=== PATIENT | male | born 1990 | race Hispanic/Latino ===

== ENCOUNTER 2018-08-31 15:02 | Inpatient (IN) | payer SELFPAY ==
[~2018-08-31] VITALS: Ht 170.2 cm; Wt 198.2 kg
[2018-08-31] MEDS: ALBUTEROL SULF 0.083% NEB SOLN 3 ML NEB NEB SCH (00:22)
[~2018-08-31 15:02] MED LIST: CIPRO500 MG PO; LOSARTAN POTAS100 MG PO; LOVASTATIN20 MG PO; OMEPRAZOLE40 MG PO
[2018-08-31] MEDS ORDERED: CEFTRIAXONE SOD 1 GM/NS 50 ML 50 ML IV STA (15:19)
[2018-08-31] MEDS ORDERED: IPRATROPIUM BROMIDE 0.02% 2.5 ML NEB NEB STA (15:19)
[2018-08-31] MEDS ORDERED: SODIUM CHLORIDE 0.9% 1000ML 1,000 ML IV STA (15:19)
[2018-08-31] MEDS ORDERED: ALBUTEROL SULF 0.083% NEB SOLN 3 ML NEB NEB STA (15:19)
[2018-08-31 16:18] LABS: BILIRUBIN,URINE NEGATIVE (NEGATIVE); CLARITY,URINE SL CLOUDY (CLEAR); COLOR,URINE YELLOW (YELLOW); KETONES,URINE TRACE (NEGATIVE); LEUKOCYTE ESTERASE ,URINE NEGATIVE (NEGATIVE); NITRITE,URINE NEGATIVE (NEGATIVE); PROTEIN,URINE DIPSTICK 2+ (NEGATIVE); URINE UROBILINOGEN 0.2 mg/dL (0.2 - 1)
[2018-08-31 16:30] LABS: BACTERIA,URINE MODERATE /HPF; EPITHELIAL CELLS,URINE FEW /LPF
[2018-08-31 16:31] LABS: MUCUS,URINE FEW (RARE)
--- NOTE | 2018-08-31 17:02 | Diagnostic Imaging Report ---
EXAMINATION: CHEST 2 VIEWS INDICATION: Cough, congestion, sore throat. COMPARISON: Report from CT chest dated 09/04/2016, although the images are not available for review. FINDINGS: TUBES and LINES: None. LUNGS: Lungs are moderately inflated. There is bilateral bronchial thickening. There are interstitial opacities in the right lung. There are patchy opacities in the right mid and bilateral lower lungs. PLEURA: No pleural effusion or pneumothorax. HEART AND MEDIASTINUM: The cardiomediastinal silhouette is unremarkable. BONES AND SOFT TISSUES: No acute osseous abnormality. UPPER ABDOMEN: No free air under the diaphragm. IMPRESSION: Multifocal opacities, most consistent with pneumonia in a patient with cough. Recommend follow-up chest radiograph in 6-8 weeks to assess for resolution. Signed by: Dr. Lazara Roach MD on 08/31/2018 4:59 PM
[2018-08-31] MEDS ORDERED: ALBUTEROL SULF 0.083% NEB SOLN 3 ML NEB ONE ×2 (19:08→19:42)
[2018-08-31] MEDS ORDERED: IPRATROPIUM BROMIDE 0.02% 2.5 ML NEB ONE ×2 (19:09→19:42)
[2018-08-31 19:49] LABS: BASOPHILS % 0.4 % (0.0-1.0); EOSINOPHILS # (AUTO) 0.1 (0.0-0.4); EOSINOPHILS % 2.4 % (0.0-6.0); HEMATOCRIT 44.8 % (38.2-49.6); HEMOGLOBIN 13.9 g/dL (14.0-18.0); LYMPHOCYTES # (AUTO) 1.5 (1.0-3.2); LYMPHOCYTES % 27.5 % (18.0-39.1); MEAN CORPUSCULAR VOLUME 80.4 fL (81-99); MONOCYTES # (AUTO) 0.5 (0.2-0.8); MONOCYTES % 8.9 % (4.4-11.3); NEUTROPHILS # (AUTO) 3.2 (2.1-6.9); NEUTROPHILS % 58.6 % (38.7-80.0); PLATELET COUNT 150 x10e3/uL (140-360); RED BLOOD COUNT 5.57 x10e6/uL (4.3-5.7); RED CELL DISTRIBUTION WIDTH 14.8 % (11.7-14.4)
[2018-08-31] MEDS: LEVOFLOXACIN 750MG/D5W 150ML 150 ML IV SCH (20:00)
[2018-08-31 20:35] LABS: INFLUENZAE A&B ANTIGEN (RAPID) NEGATIVE (NEGATIVE); STREPTOCOCCUS GRP A ANTIGEN NEGATIVE (NEGATIVE)
[2018-08-31 20:45] LABS: INR 0.9; PROTHROMBIN TIME 12.6 seconds (11.9-14.5)
[2018-08-31 20:46] LABS: PARTIAL THROMBOPLASTIN TIME 27.9 seconds (23.8-35.5)
[2018-08-31 20:48] LABS: B-TYPE NATRIURETIC PEPTIDE2 < 10.0 pg/mL (0-100)
[2018-08-31 20:55] LABS: ALANINE AMINOTRANSFERASE 15 IU/L (0-55); ALBUMIN 3.1 g/dL (3.5-5.0); ALBUMIN/GLOBULIN RATIO 0.7 (0.8-2.0); ALKALINE PHOSPHATASE 116 IU/L (40-150); ANION GAP 13.9 mmol/L (8-16); BLOOD UREA NITROGEN 15 mg/dL (7-26); BUN/CREATININE RATIO 21 (6-25); CALCIUM 9.3 mg/dL (8.4-10.2); CARBON DIOXIDE 28 mmol/L (22-29); CHLORIDE 96 mmol/L (98-107); CREATINE KINASE 74 IU/L (30-200); CREATININE, SERUM 0.73 mg/dL (0.72-1.25); EST GLOMERULAR FILTRATION RATE > 60 ML/MIN (60-); GLUCOSE 281 mg/dL (74-118); POTASSIUM 3.9 mmol/L (3.5-5.1); SODIUM 134 mmol/L (136-145)
[2018-08-31 21:15] LABS: THYROID STIMULATING HORMONE 1.588 uIU/mL (0.350-4.940)
[2018-08-31] MEDS ORDERED: SODIUM CHLORIDE FLUSH 10 ML SYR INJ PRN (21:15)
[2018-08-31] MEDS ORDERED: ACETAMINOPHEN 325 MG TAB PO PRN (21:15)
--- OUTSIDE RECORDS SUMMARY | 2018-08-31 21:59 | XMS REPORT ---
Author Author [facility] Address Unknown Phone Unavailable Care Team Providers Care Assistant Basketball Coach Name Role Phone Andres PEREZ Unavailable Unavailable Problems This patient has no known problems. Allergies, Adverse Reactions, Alerts This patient has no known allergies or adverse reactions. Medications This patient has no known medications. Results Test Description Test Time Test Comments Text Results Atomic Results Result Comments CHEST 2 VIEWS 2018-08-31 16:56:00 [facility] [address] [address] Patient Name: SRAVAN HDZ MR #: [id number] : 1990 Age/Sex: 28/M Req #: [id number] Adm Physician: Ordered by: ESTUARDO WHITE CHAPLAIN RESIDENT Report #: [id number] Location: ER Room/Bed: Procedure: [id number] DX/CHEST 2 VIEWS Exam Date: 08/31/18 Exam Time: 1547 REPORT STATUS: Signed EXAMINATION: CHEST 2 VIEWS INDICATION: Cough, con gestion, sore throat. COMPARISON: Report from CT chest dated 09/04/2016, although the images are not available for review. FINDINGS: TUBES and LINES: None. LUNGS: Lungs are moderately inflated. There is bilateral bronchial thickening. There are interstitial opacities in the right lung. There are patchy opacities in the right mid and bilateral lower lungs. PLEURA: No pleural effusion or pneumothorax. HEART AND MEDIASTINUM: The cardiomediastinal silhouette is unremarkable. BONES AND SOFT TISSUES: No acute osseous abnormality. UPPER ABDOMEN: No free air under the diaphragm. IMPRESSION: Multifocal opacities, most consistent with pneumonia in a patient with cough. Recommend follow-up chest radiograph in 6-8 weeks to assess for resolution. Signed by: Dr. Kwabena Roach MD on 08/31/2018 4:59 PM Dictated By: KWABENA ROACH MD [id number] Transcribed By: CHARLIE on 08/31/18 4432 COPY TO: ESTUARDO WHITE NP
[2018-08-31 22:09] VITALS: BP 128/64
[2018-08-31 22:12] LABS: BAND NEUTROPHILS % (MANUAL) 2 %; EOSINOPHILS % (MANUAL) 1 % (0-7); LYMPHOCYTES % (MANUAL) 25 % (19-48); MONOCYTES % (MANUAL) 8 % (3.4-9.0); NEUTROPHILS % (MANUAL) 62 % (40-74); PROMYELOCYTES % (MANUAL) 2 % (0-0)
[2018-08-31 22:15] VITALS: BP 128/64
[2018-08-31 23:02] LABS: HIV 1&2 AB SCREEN NON-REACTIVE (NONREACTIVE)
[2018-09-01] MEDS: IPRATROPIUM BROMIDE 0.02% 2.5 ML NEB NEB SCH ×4 (00:22→20:11)
[2018-09-01] MEDS: ALBUTEROL SULF 0.083% NEB SOLN 3 ML NEB NEB SCH ×5 (03:44→20:11)
[2018-09-01 04:00] VITALS: BP 134/84
[2018-09-01 06:26] LABS: BASOPHILS % 0.6 % (0.0-1.0); EOSINOPHILS # (AUTO) 0.1 (0.0-0.4); EOSINOPHILS % 1.5 % (0.0-6.0); HEMOGLOBIN 13.9 g/dL (14.0-18.0); LYMPHOCYTES # (AUTO) 1.2 (1.0-3.2); LYMPHOCYTES % 17.2 % (18.0-39.1); MEAN CORPUSCULAR HEMOGLOBIN 24.6 pg (28-32); MEAN CORPUSCULAR HGB CONC 29.6 g/dL (31-35); MEAN CORPUSCULAR VOLUME 83.2 fL (81-99); MONOCYTES # (AUTO) 0.6 (0.2-0.8); MONOCYTES % 8.3 % (4.4-11.3); NEUTROPHILS # (AUTO) 4.8 (2.1-6.9); NEUTROPHILS % 70.6 % (38.7-80.0); PLATELET COUNT 160 x10e3/uL (140-360); RED BLOOD COUNT 5.65 x10e6/uL (4.3-5.7); RED CELL DISTRIBUTION WIDTH 15.1 % (11.7-14.4)
[2018-09-01 06:30] LABS: ALANINE AMINOTRANSFERASE 17 IU/L (0-55); ALBUMIN 3.1 g/dL (3.5-5.0); ALBUMIN/GLOBULIN RATIO 0.7 (0.8-2.0); ALKALINE PHOSPHATASE 99 IU/L (40-150); ANION GAP 12.2 mmol/L (8-16); BLOOD UREA NITROGEN 15 mg/dL (7-26); BUN/CREATININE RATIO 20 (6-25); CALCIUM 8.9 mg/dL (8.4-10.2); CARBON DIOXIDE 29 mmol/L (22-29); CHLORIDE 98 mmol/L (98-107); CREATININE, SERUM 0.74 mg/dL (0.72-1.25); EST GLOMERULAR FILTRATION RATE > 60 ML/MIN (60-); GLUCOSE 341 mg/dL (74-118); POTASSIUM 4.2 mmol/L (3.5-5.1); SODIUM 135 mmol/L (136-145)
[2018-09-01 06:47] LABS: CREATINE KINASE 113 IU/L (30-200)
[2018-09-01 07:46] VITALS: BP 133/78
[2018-09-01 08:00] VITALS: BP 133/78
[2018-09-01] MEDS ORDERED: DEXTROSE 50% SYRINGE 50 ML IV PRN (10:15)
[2018-09-01] MEDS ORDERED: ACETAMINOPHEN 325 MG TAB PO PRN (10:30)
[2018-09-01] MEDS ORDERED: MAGNESIUM HYDROXIDE 30 ML UDC PO PRN (10:30)
[2018-09-01] MEDS: INSULIN REGULAR, HUMAN 100 UNIT/1 ML 3ML VIAL SQ SCH ×3 (11:30→21:00)
[2018-09-01 11:34] VITALS: BP 133/91
[2018-09-01 14:32] LABS: CREATINE KINASE 135 IU/L (30-200)
[2018-09-01 16:20] VITALS: BP 144/71
--- NOTE | 2018-09-01 17:33 | History and Physical ---
HISTORY OF PRESENT ILLNESS: Mr. 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 CHIEF COMPLAINT: The patient reports that he sees Dr. Henry once or twice a year and reports that he "thought he had a cold." He could get not in Dr. Henry's office because it was "too busy," so he went to see Dr. Villegas, who directed him directly to the emergency room for presumed pneumonia. PAST MEDICAL HISTORY: Significant for previous hospitalization for pneumonia and pleural effusion in August of 2016 when he weighed only 395 pounds. He has had a previous left ankle fracture in 2008. MEDICATIONS: He reports that his home medications are: 1. Omeprazole 20 mg daily. 2. Losartan 50 mg daily. 3. Simvastatin 10 mg daily. REVIEW OF SYSTEMS: PULMONARY: The patient reports that he is using CPAP for sleep now. He does not use oxygen around the clock. ENDOCRINE: His previous blood sugars were 108 to 141 back in 2017. GENERAL: He appears to have gained approximately 42 pounds of weight over the last two years, now weighing 437 pounds by bed scale. PHYSICAL EXAMINATION: GENERAL: At this time shows morbidly obese white man, who is alert, conversant, about 5 feet 7 inches tall. HEAD, EYES, EARS, NOSE, AND THROAT: Unremarkable. THORAX: Heart sounds S1, S2 are equal. No murmurs. LUNGS: Faint rhonchi and mild wheezing in the left upper lobe. ABDOMEN: Markedly protuberant. EXTREMITIES: Large, but without any significant edema. PERTINENT LABORATORY STUDIES: Sodium 135, potassium 4.2, glucose 341. Hemoglobin 13.9. INR 0.9. White count 6.8. IMAGING: Chest x-ray shows multifocal infiltrates. ASSESSMENT: 1. Pneumonia. 2. Morbid obesity with further weight gain in the last two years from 395 pounds to 437 pounds. 3. Sleep apnea. He reports he is using CPAP now. 4. New diagnosis of diabetes and blood sugar much higher than it was two years ago. PLAN: The patient is receiving broad-spectrum antibiotics and we will ask for Pulmonary consultation. We will try sliding scale insulin for him and monitor his blood sugars as for dietitian input. MD VIJAY Diallo/JOSTIN /[id number] cc: MD Kyler Garcia MD
[2018-09-01] MEDS: FLUTICASONE PROPIONATE NASAL SPRAY NS SCH (17:39)
[2018-09-01] MEDS: ENOXAPARIN SOD INJ 40 MG/0.4 ML SYR SC SCH (17:40)
[2018-09-01] MEDS: DOCUSATE SODIUM 100 MG CAP PO SCH (17:40)
[2018-09-01] MEDS ORDERED: SODIUM CHLORIDE 0.9% 250ML 250 ML ONE (17:45)
[2018-09-01] MEDS: LEVOFLOXACIN 750MG/D5W 150ML 150 ML IV SCH (17:55)
[2018-09-01 20:00] VITALS: BP 139/94
[2018-09-01] MEDS: OXYMETAZOLINE HCL 0.05% NAS 1 SPRAY BTL SCH (21:00)
[2018-09-01] MEDS: SIMVASTATIN 20 MG TAB PO SCH (21:00)
[2018-09-01] MEDS ORDERED: NON-FORMULARY MEDICATION (Lovastatin 20 MG) PO SCH (21:00)
--- NOTE | 2018-09-01 23:23 | Consultation ---
DATE OF CONSULTATION: Pulmonary Consultation HISTORY OF PRESENT ILLNESS: The patient of Dr. Maycol Gamble and Dr. Lucho Henry, [facility] 28-year-[facility] gentleman, admitted with sore throat, chills, productive cough, ill for approximately seven days. Denies vomiting. History of gastroesophageal reflux, hypertension, hyperlipidemia, newly diagnosed with diabetes mellitus. ALLERGIES: NO KNOWN ALLERGIES. MEDICATIONS: Include losartan, omeprazole, and lovastatin. SURGICAL HISTORY: No surgical history. He has had fractured ankle repair. SOCIAL HISTORY: Works as a catering truck driver. Nonsmoker. No alcohol. FAMILY HISTORY: Noncontributory. PHYSICAL EXAMINATION: GENERAL: Morbidly obese white male, in no acute distress, surrounded by his family. VITAL SIGNS: Temperature 96, pulse 110, blood pressure 144/71. HEAD: Normocephalic, atraumatic. NECK: Trachea midline. LUNGS: Diminished breath sounds bilaterally. Few rhonchi. HEART: Regular rhythm. ABDOMEN: Obese. EXTREMITIES: Trace edema. IMPRESSION: Diabetes, obstructive sleep apnea, hypertension, community-acquired pneumonia. PLAN: IV antibiotic therapy. Currently on Levaquin, check sputum studies. No evidence of heart failure, resume BiPAP. Diabetic teaching. Consider HIV screen. Weight reduction and dietary intervention. Thank you for this kind referral. MD SAROJ Li/MODL /[id number]
[2018-09-02] VITALS (8 sets, daily range): BP systolic 128–145; BP diastolic 70–82
[2018-09-02] MEDS: IPRATROPIUM BROMIDE 0.02% 2.5 ML NEB NEB SCH ×4 (00:19→19:32)
[2018-09-02] MEDS: ALBUTEROL SULF 0.083% NEB SOLN 3 ML NEB NEB SCH ×4 (00:19→19:32)
[2018-09-02 06:43] LABS: BASOPHILS % 0.4 % (0.0-1.0); EOSINOPHILS # (AUTO) 0.1 (0.0-0.4); EOSINOPHILS % 1.9 % (0.0-6.0); HEMATOCRIT 45.5 % (38.2-49.6); HEMOGLOBIN 13.8 g/dL (14.0-18.0); LYMPHOCYTES # (AUTO) 1.2 (1.0-3.2); LYMPHOCYTES % 17.1 % (18.0-39.1); MEAN CORPUSCULAR HGB CONC 30.3 g/dL (31-35); MEAN CORPUSCULAR VOLUME 82.6 fL (81-99); MONOCYTES # (AUTO) 0.5 (0.2-0.8); MONOCYTES % 7.1 % (4.4-11.3); NEUTROPHILS % 71.6 % (38.7-80.0); PLATELET COUNT 157 x10e3/uL (140-360); RED BLOOD COUNT 5.51 x10e6/uL (4.3-5.7); RED CELL DISTRIBUTION WIDTH 15.1 % (11.7-14.4)
[2018-09-02 07:17] LABS: ALANINE AMINOTRANSFERASE 19 IU/L (0-55); ALBUMIN 3.1 g/dL (3.5-5.0); ALBUMIN/GLOBULIN RATIO 0.7 (0.8-2.0); ALKALINE PHOSPHATASE 96 IU/L (40-150); ANION GAP 12.1 mmol/L (8-16); BLOOD UREA NITROGEN 13 mg/dL (7-26); BUN/CREATININE RATIO 18 (6-25); CALCIUM 8.8 mg/dL (8.4-10.2); CARBON DIOXIDE 30 mmol/L (22-29); CHLORIDE 98 mmol/L (98-107); CREATININE, SERUM 0.73 mg/dL (0.72-1.25); EST GLOMERULAR FILTRATION RATE > 60 ML/MIN (60-); GLUCOSE 270 mg/dL (74-118); POTASSIUM 4.1 mmol/L (3.5-5.1); SODIUM 136 mmol/L (136-145)
[2018-09-02] MEDS: INSULIN REGULAR, HUMAN 100 UNIT/1 ML 3ML VIAL SQ SCH ×4 (07:30→21:08)
[2018-09-02 07:38] LABS: CHOL/HDL RATIO 5.3 (3.9-4.7); CHOLESTEROL 132 MD/DL (0-199); HDL CHOLESTEROL 25 MG/DL (40-60); LDL CHOLESTEROL 83 MG/DL (60-130); TRIGLYCERIDES 121 MG/DL (0-149)
[2018-09-02] MEDS: DOCUSATE SODIUM 100 MG CAP PO SCH ×2 (08:38→17:00)
[2018-09-02] MEDS: FLUTICASONE PROPIONATE NASAL SPRAY NS SCH ×2 (08:38→17:46)
[2018-09-02] MEDS: OXYMETAZOLINE HCL 0.05% NAS 1 SPRAY BTL SCH ×2 (08:38→21:07)
[2018-09-02] MEDS: LOSARTAN POTASSIUM 100 MG TAB PO SCH (08:39)
[2018-09-02] MEDS: PANTOPRAZOLE SOD 40 MG TABEC PO SCH (08:40)
[2018-09-02] MEDS ORDERED: PANTOPRAZOLE SOD 40 MG TABEC PO SCH (09:00)
[2018-09-02] MEDS: NPH, HUMAN INSULIN ISOPHANE 100 UNIT/1 ML 3ML VIAL SQ SCH ×2 (09:05→17:00)
[2018-09-02] MEDS: LORATADINE 10 MG TAB PO SCH (17:46)
[2018-09-02] MEDS: LEVOFLOXACIN 750MG/D5W 150ML 150 ML IV SCH (17:50)
[2018-09-02] MEDS: ENOXAPARIN SOD INJ 40 MG/0.4 ML SYR SC SCH (17:50)
[2018-09-02] MEDS: METFORMIN HCL 500 MG TAB PO SCH (17:50)
[2018-09-02] MEDS: SIMVASTATIN 20 MG TAB PO SCH (21:07)
[2018-09-03] VITALS (8 sets, daily range): BP systolic 132–158; BP diastolic 62–82
[2018-09-03] MEDS: ALBUTEROL SULF 0.083% NEB SOLN 3 ML NEB NEB SCH ×4 (00:55→18:45)
[2018-09-03] MEDS: IPRATROPIUM BROMIDE 0.02% 2.5 ML NEB NEB SCH ×4 (00:55→18:45)
[2018-09-03] MEDS: LORATADINE 10 MG TAB PO SCH (08:50)
[2018-09-03] MEDS: METFORMIN HCL 500 MG TAB PO SCH ×2 (08:50→17:01)
[2018-09-03] MEDS: OXYMETAZOLINE HCL 0.05% NAS 1 SPRAY BTL SCH ×2 (08:50→20:01)
[2018-09-03] MEDS: FLUTICASONE PROPIONATE NASAL SPRAY NS SCH ×2 (08:50→17:00)
[2018-09-03] MEDS: LOSARTAN POTASSIUM 100 MG TAB PO SCH (08:51)
[2018-09-03] MEDS: PANTOPRAZOLE SOD 40 MG TABEC PO SCH (08:51)
[2018-09-03] MEDS: DOCUSATE SODIUM 100 MG CAP PO SCH ×2 (08:53→17:00)
[2018-09-03] MEDS: NPH, HUMAN INSULIN ISOPHANE 100 UNIT/1 ML 3ML VIAL SQ SCH ×2 (11:06→17:56)
[2018-09-03] MEDS: INSULIN REGULAR, HUMAN 100 UNIT/1 ML 3ML VIAL SQ SCH ×4 (11:06→20:32)
[2018-09-03] MEDS: ENOXAPARIN SOD INJ 40 MG/0.4 ML SYR SC SCH (17:01)
[2018-09-03] MEDS: LEVOFLOXACIN 750MG/D5W 150ML 150 ML IV SCH (18:09)
[2018-09-03] MEDS: SIMVASTATIN 20 MG TAB PO SCH (20:01)
[2018-09-04] VITALS: BP 122/91
[2018-09-04] MEDS: IPRATROPIUM BROMIDE 0.02% 2.5 ML NEB NEB SCH ×2 (00:24→07:25)
[2018-09-04] MEDS: ALBUTEROL SULF 0.083% NEB SOLN 3 ML NEB NEB SCH ×2 (00:24→07:25)
[2018-09-04 04:00] VITALS: BP 137/71
[2018-09-04 07:30] VITALS: BP 135/65
[2018-09-04 07:44] VITALS: BP 135/65
[2018-09-04] MEDS: METFORMIN HCL 500 MG TAB PO SCH (08:05)
[2018-09-04] MEDS: LORATADINE 10 MG TAB PO SCH (08:06)
[2018-09-04] MEDS: DOCUSATE SODIUM 100 MG CAP PO SCH (08:10)
[2018-09-04] MEDS: LOSARTAN POTASSIUM 100 MG TAB PO SCH (08:11)
[2018-09-04] MEDS: PANTOPRAZOLE SOD 40 MG TABEC PO SCH (08:11)
[2018-09-04] MEDS: INSULIN REGULAR, HUMAN 100 UNIT/1 ML 3ML VIAL SQ SCH ×2 (08:35→11:30)
[2018-09-04] MEDS: NPH, HUMAN INSULIN ISOPHANE 100 UNIT/1 ML 3ML VIAL SQ SCH (08:45)
[2018-09-04] MEDS: FLUTICASONE PROPIONATE NASAL SPRAY NS SCH (09:41)
[2018-09-04] MEDS: OXYMETAZOLINE HCL 0.05% NAS 1 SPRAY BTL SCH (09:41)
[2018-09-04 11:57] VITALS: BP 116/63
[2018-09-04] MEDS ORDERED: METFORMIN HCL500 MG PO (12:22)
[2018-09-04] MEDS ORDERED: LEVAQUIN500 MG PO (12:22)
--- NOTE | 2018-09-04 18:29 | Discharge Summary ---
Mr. Leung is a 28-year-old man, who is super obese (300% of ideal weight), who presented to the emergency room with a complaint of cough and shortness of breath. HOSPITAL COURSE: Initial evaluation suggested possible pneumonia and he was given broad-spectrum antibiotics with IV Levaquin. He was found also to have galina diabetes with a hemoglobin A1c over 10. He was given sliding scale insulin and had metformin added as well. We have discussed sinus congestion and the use of a CPAP machine for sleep apnea. He is educated that both Claritin and Nasacort and Flonase are also [id number]. Today, he is feeling better and discharged home to take Levaquin 500 mg daily for another seven days and add metformin 500 mg twice a day to his medical regimen. He will follow up with Dr. Henry or the [facility] for management of galina diabetes. DISCHARGE DIAGNOSES: 1. Pneumonia. 2. Super obesity. 3. Type 2 adult onset diabetes, uncontrolled. 4. Sleep apnea. 5. Nasal congestion. MD VIAJY Diallo/MODL /[id number] cc: MD Lucho Jimenez MD
== END 2018-09-04 13:46 | disposition home or self-care (01) | DRG 194 ==
LOC: ER 15:02 → ERHOLD 21:57 → MED/SURG3 22:14
PROVIDERS: ADMIT Internal Medicine Cardiovascular Disease; ATTEND Internal Medicine Cardiovascular Disease
DX: J18.9 Pneumonia, unspecified organism (principal); Z68.44 Body mass index [BMI] 60.0-69.9, adult; E66.01 Morbid (severe) obesity due to excess calories; G47.33 Obstructive sleep apnea (adult) (pediatric); E11.65 Type 2 diabetes mellitus with hyperglycemia; I10 Essential (primary) hypertension; K21.9 Gastro-esophageal reflux disease without esophagitis; E78.5 Hyperlipidemia, unspecified; R09.81 Nasal congestion; Z79.84 Long term (current) use of oral hypoglycemic drugs
CPT/HCPCS: 36415; 71046; 80053; 80061; 81001; 82550; 82553; 82948; 83036; 83518; 83605; 83880; 84443; 84484; 85025; 85610; 85730; 87040; 87070; 87086; 87390; 87400; 94640; 94660; 99284; G0433; G0435; J1650; J7050

== ENCOUNTER 2019-11-10 15:29 | Emergency (ER) | payer SELFPAY ==
[~2019-11-10] VITALS: Ht 170.2 cm; Wt 198.2 kg
[~2019-11-10 15:29] MED LIST changes: +LEVAQUIN500 MG PO; +METFORMIN HCL500 MG PO
--- NOTE | 2019-11-10 15:43 | Emergency Department Note ---
History of Present Illnes History of Present Illness Chief Complaint: COVID PUI History of Present Illness This is a 29 year old male arrives to the ED with complaints of cough fever and shortness of breath, states his mother tested positive for Covid and his Covid test is pending. . Historian: Patient Arrival Mode: Car Onset (how long ago): day(s) Severity: mild Onset quality: gradual Duration (how long): day(s) Timing of current episode: intermittent Progression: improving Chronicity: new Context: Reports recent illness Relieving factors: none Past Medical/Family History Physician Review I have reviewed the patient's past medical and family history. Any updates have been documented here. Past Medical History Recent Fever: Yes Clinical Suspicion of Infectio: Yes New/Unexplained Change in Ment: No Past Medical History: Hypertension, Diabetes, GERD, Hyperlipedemia Other Medical History: Obesity, Pneumonia (2 yrs ago) Past Surgical History: Appendectomy Other Surgery: left ankle surgery, left tibia surgery Social History Smoking Cessation: Never Smoker Counseling Performed: No Alcohol Use: Social Any Illegal Drug Use: No TB Exposure/Symptoms: No Physically hurt or threatened: No Family History Family history of heart diseas: Yes Other [facility] Review of Systems Review of Systems Constitutional: Reports no symptoms, Reports as per HPI, Reports weakness EENTM: Reports no symptoms Cardiovascular: Reports no symptoms Respiratory: Reports no symptoms, Reports as per HPI, Reports cough, Reports pain with cough Gastrointestinal: Reports no symptoms Genitourinary: Reports no symptoms Musculoskeletal: Reports no symptoms Integumentary: Reports no symptoms Neurological: Reports no symptoms Psychological: Reports no symptoms Endocrine: Reports no symptoms Hematological/Lymphatic: Reports no symptoms Physical Exam Related Data Allergies: Coded Allergies: No Known Allergies (Unverified , 08/03/16) Triage Vital Signs Vital Signs Date Time Temp Pulse Resp B/P (MAP) Pulse Ox O2 Delivery O2 Flow Rate FiO2 11/10/19 15:32 97.9 118 24 154/103 97 Room Air Vital signs reviewed: Yes Physical Exam CONSTITUTIONAL Constitutional: Present well-developed, Present morbidly obese HENT HENT: Present normocephalic, Present atraumatic, Present oropharynx clear/moist, Present nose normal HENT L/R: Present left ext ear normal, Present right ext ear normal EYES Eyes: Reports PERRL, Reports conjunctivae normal NECK Neck: Present ROM normal PULMONARY Pulmonary: Present effort normal, Present breath sounds normal CARDIOVASCULAR Cardiovascular: Present regular rhythm, Present heart sounds normal, Present capillary refill normal, Present normal rate GASTROINTESTINAL Abdominal: Present soft, Present nontender, Present bowel sounds normal GENITOURINARY Genitourinary: Present exam deferred SKIN Skin: Present warm, Present dry MUSCULOSKELETAL Musculoskeletal: Present ROM normal NEUROLOGICAL Neurological: Present alert, Present oriented x 3, Present no gross motor or sensory deficits PSYCHOLOGICAL Psychological: Present mood/affect normal, Present judgement normal Results Imaging Imaging results reviewed: Yes Assessment & Plan Medical Decision Making MDM 29-year-old well-appearing male arrives to the ED with complaints of cough fever and shortness of breath. Patient is clinically presenting with signs and symptoms consistent with Covid 19. Patient informed he is positive until proven otherwise. Patient's oxygen saturation remained 99% even on exertion, no evidence of tachypnea or dyspnea noted in the ED. Spoke present length about the importance of sleeping on his stomach and rotating from side to side. Z-Wilber given, signs and symptoms for return discussed. In the light of the Covid pandemic, disaster medicine care was given- patient understands why he was not retested for Covid 19 in the ED, Patient's lab work reviewed,- chest x-ray shows questionable patchy airspace opacities . Patient clinically appears well, outpatient pulmonary follow-up given. The red flags for return to emergency department given. Patient understands the emergency depa rtment is open at all times to serve his needs as well as the needs of the community. Assessment & Plan Final Impression: (1) COVID-19 Depart Disposition: HOME, SELF-CARE Last Vital Signs Date Time Temp Pulse Resp B/P (MAP) Pulse Ox O2 Delivery O2 Flow Rate FiO2 11/10/19 15:32 97.9 118 24 154/103 97 Room Air Home Meds Active Scripts Levofloxacin (LEVAQUIN) 500 Mg Tablet, 500 MG PO DAILY for 7 Days Prov:SIDRA MALDONADO MD 09/04/18 Metformin Hcl (METFORMIN HCL) 500 Mg Tablet, 500 MG PO BIDWM for 30 Days, #60 Prov:SIDRA MALDONADO MD 09/04/18 Reported Medications Lovastatin (LOVASTATIN) 20 Mg Tablet, 20 MG PO HS 08/03/16 Omeprazole (OMEPRAZOLE) 40 Mg Capsule.dr, 20 MG PO DAILY 08/03/16 Losartan Potassium (LOSARTAN POTASSIUM) 100 Mg Tablet, 50 MG PO DAILY, TAB 08/03/16 INGE LOCKETT DO Nov 10, 2019 15:43
--- NOTE | 2019-11-10 17:01 | Diagnostic Imaging Report ---
EXAM: CHEST SINGLE (PORTABLE) DATE: 11/10/2019 4:26 PM INDICATION: Shortness of breath, headache, viral pneumonia COMPARISON: 08/31/2018 FINDINGS/IMPRESSION: The trachea is midline. There are mildly increased patchy interstitial and airspace opacities with a lower lung zone predominance. Findings are nonspecific but can be seen in the setting of an atypical/viral pneumonitis. There is no evidence for focal consolidation, pneumothorax, or significant pleural effusion. The cardiomediastinal silhouette is within normal limits. No acute osseous abnormality is identified. Signed by: Dr. Jose Haywood MD on 11/10/2019 4:57 PM
== END 2019-11-10 17:09 | disposition home or self-care (01) ==
LOC: ER 15:34
DX: U07.1 COVID-19 (principal); R50.9 Fever, unspecified; R05 Cough; R06.02 Shortness of breath; I10 Essential (primary) hypertension; E11.9 Type 2 diabetes mellitus without complications; E78.5 Hyperlipidemia, unspecified; K21.9 Gastro-esophageal reflux disease without esophagitis; E66.9 Obesity, unspecified; Z87.01 Personal history of pneumonia (recurrent)
CPT/HCPCS: 71045; 99283